=== PATIENT | female | born 1945 | race American Indian/Alaskan Native ===

== ENCOUNTER 2016-11-12 23:17 | Emergency (ER) | payer MEDICARE ==
[2016-11-12] MEDS ORDERED: ASPIRIN PO ONE (23:50)
--- NOTE | 2016-11-12 23:56 | Emergency Department Report ---
ED General Adult HPI - General Chief complaint: Chest Pain Stated complaint: ARM/CHEST PAIN Time Seen by Provider: 11/12/16 23:44 Source: patient, EMS Mode of arrival: Stretcher Limitations: Physical Limitation - History of Present Illness Initial comments: 71-year-old female presents to the emergency department complaining of left- sided chest pain. Patient reports intermittent symptoms beginning yesterday. Patient describes a sharp, tingling pain that begins in the left upper chest/ trapezius area and radiates down her left arm and around her back underneath her left breast. She denies associated symptoms including source of breath, dizziness, diaphoresis, nausea, or vomiting. She states she has had 3 episodes of this pain since onset yesterday. At this time, the patient denies pain. There are no other complaints. -: Gradual, days(s) (1) Location: chest Quality: sharp Consistency: intermittent Improves with: none Worsens with: none Associated Symptoms: denies other symptoms Treatments Prior to Arrival: none - Related Data Home Medications Medication Instructions Recorded Confirmed Last Taken Aspirin [Aspirin TAB] 325 mg PO QDAY 01/18/14 11/12/16 11/12/16 Carvedilol [Coreg] 3.125 mg PO BID 01/18/14 11/12/16 11/12/16 Furosemide [Lasix] 20 mg PO DAILY 01/18/14 11/12/16 11/12/16 Meclizine [Antivert] 25 mg PO TID PRN 01/18/14 11/12/16 11/12/16 Metformin HCl [Fortamet] 1,000 mg PO BID 01/18/14 11/12/16 11/12/16 Simvastatin 20 mg PO QDAY 01/18/14 11/12/16 11/12/16 glipiZIDE [Glipizide ER] 5 mg PO QAM 01/18/14 11/12/16 11/12/16 Previous Rx's Medication Instructions Recorded Last Taken Type HYDROcodone/APAP 5-325 [[place] 1 each PO Q6HR PRN #20 tablet 01/19/14 Unknown Rx 5/325 mg] Cyclobenzaprine [Flexeril] 10 mg PO TID PRN #14 tablet 11/13/16 Unknown Rx Allergies Allergy/AdvReac Type Severity Reaction Status Date / Time No Known Allergies Allergy Verified 01/18/14 19:33 ED Review of Systems ROS: Stated complaint: ARM/CHEST PAIN Other details as noted in HPI Comment: All other systems reviewed and negative Cardiovascular: chest pain ED Past Medical Hx - Past Medical History Previous Medical History?: Yes Hx Hypertension: Yes Hx Heart Attack/AMI: Yes Hx Diabetes: Yes Hx Arthritis: Yes Additional medical history: high cholesterol / eye problems - Surgical History Past Surgical History?: Yes Hx Coronary Stent: Yes Hx Cholecystectomy: Yes Additional Surgical History: carpal tunnel. - Family History Family history: no significant - Social History Smoking Status: Never Smoker Substance Use Type: None - Medications Home Medications: Home Medications Medication Instructions Recorded Confirmed Last Taken Type Aspirin [Aspirin TAB] 325 mg PO QDAY 01/18/14 11/12/16 11/12/16 History Carvedilol [Coreg] 3.125 mg PO BID 01/18/14 11/12/16 11/12/16 History Furosemide [Lasix] 20 mg PO DAILY 01/18/14 11/12/16 11/12/16 History Meclizine [Antivert] 25 mg PO TID PRN 01/18/14 11/12/16 11/12/16 History Metformin HCl [Fortamet] 1,000 mg PO BID 01/18/14 11/12/16 11/12/16 History Simvastatin 20 mg PO QDAY 01/18/14 11/12/16 11/12/16 History glipiZIDE [Glipizide ER] 5 mg PO QAM 01/18/14 11/12/16 11/12/16 History HYDROcodone/APAP 5-325 [[place] 1 each PO Q6HR PRN #20 tablet 01/19/14 11/12/16 Unknown Rx 5/325 mg] Cyclobenzaprine [Flexeril] 10 mg PO TID PRN #14 tablet 11/13/16 Unknown Rx ED Physical Exam - General Limitations: No Limitations General appearance: alert, in no apparent distress - Head Head exam: Present: atraumatic, normocephalic - ENT ENT exam: Present: normal exam, normal orophraynx, mucous membranes moist - Neck Neck exam: Present: normal inspection, full ROM. Absent: tenderness - Respiratory Respiratory exam: Present: normal lung sounds bilaterally. Absent: respiratory distress, chest wall tenderness - Cardiovascular Cardiovascular Exam: Present: regular rate, normal rhythm, normal heart sounds - GI/Abdominal GI/Abdominal exam: Present: soft, normal bowel sounds. Absent: distended, tenderness - Extremities Exam Extremities exam: Present: normal inspection, full ROM. Absent: tenderness - Back Exam Back exam: Present: normal inspection, full ROM. Absent: tenderness - Neurological Exam Neurological exam: Present: alert, oriented X3. Absent: motor sensory deficit - Skin Skin exam: Present: warm, dry, intact ED Course Vital Signs 11/12/16 23:40 Temperature 98.4 F Pulse Rate 89 Respiratory 18 Rate Blood Pressure 163/68 O2 Sat by Pulse 100 Oximetry ED Medical Decision Making - Lab Data Result diagrams: 11/12/16 23:54 11/12/16 23:54 - EKG Data -: EKG Interpreted by Me EKG shows normal: sinus rhythm, axis, intervals, QRS complexes, ST-T waves Rate: normal - EKG Data When compared to previous EKG there are: no significant change Interpretation: unchanged when compared t (05/29/2013), other (occasional PAC) - Medical Decision Making Lab results reviewed and discussed with the patient. Patient has remained asymptomatic in the emergency department. Patient has had a nonischemic ECG and 2 negative troponins. Patient will be discharged home at this time to follow up with her primary care physician. - Differential Diagnosis atypical chest pain, ACS, muscle spasm Critical care attestation.: If time is entered above; I have spent that time in minutes in the direct care of this critically ill patient, excluding procedure time. ED Disposition Clinical Impression: Muscle spasm of left shoulder area Disposition: DISCHARGED TO HOME OR SELFCARE Is pt being admited?: No Condition: Stable Instructions: Muscle Spasm (ED) Prescriptions: Cyclobenzaprine [Flexeril] 10 mg PO TID PRN #14 tablet PRN Reason: Muscle Spasm Referrals: PRIMARY CARE, [Primary Care Provider] - 3-5 Days Time of Disposition: 03:54
[2016-11-13 00:06] LABS: Basophils % (Auto) 0.8 % (0.0-1.8); Eosinophils % (Auto) 3.6 % (0.0-4.3); Hematocrit 33.8 % (30.3-42.9); Hemoglobin 11.2 gm/dl (10.1-14.3); Mean Corpuscular HGB Conc 33 % (30-34); Mean Corpuscular Hemoglobin 31 pg (28-32); Mean Corpuscular Volume 94 fl (79-97); Platelet Count 228 K/mm3 (140-440); Red Blood Count 3.61 M/mm3 (3.65-5.03); Red Cell Distribution Width 13.1 % (13.2-15.2); White Blood Count 8.9 K/mm3 (4.5-11.0)
[2016-11-13 00:25] LABS: BUN/Creatinine Ratio 15.45; Blood Urea Nitrogen 17 mg/dL (7-17); Calcium 8.9 mg/dL (8.4-10.2); Carbon Dioxide 29 mmol/L (22-30); Chloride 99.8 mmol/L (98-107); Glucose 309 mg/dL (65-100); Potassium 3.6 mmol/L (3.6-5.0); Sodium 141 mmol/L (137-145)
[2016-11-13 00:26] LABS: Anion Gap 16 mmol/L
[2016-11-13 04:23] VITALS: BP 129/58
== END 2016-11-13 04:22 | disposition home or self-care (01) ==
LOC: ED 23:17
DX: M62.838 Other muscle spasm (principal); I10 Essential (primary) hypertension; E11.9 Type 2 diabetes mellitus without complications; M19.90 Unspecified osteoarthritis, unspecified site; E78.00 Pure hypercholesterolemia, unspecified; I25.2 Old myocardial infarction; Z90.49 Acquired absence of other specified parts of digestive tract
CPT/HCPCS: 36415; 80048; 84484; 85025; 93005; 93010; 99284

== ENCOUNTER 2017-10-18 02:19 | Inpatient (IN) | payer MEDICARE ==
[2017-10-18 03:42] LABS: Hematocrit 30.2 % (30.3-42.9); Hemoglobin 10.2 gm/dl (10.1-14.3); Mean Corpuscular HGB Conc 34 % (30-34); Mean Corpuscular Hemoglobin 32 pg (28-32); Mean Corpuscular Volume 96 fl (79-97); Platelet Count 237 K/mm3 (140-440); Red Blood Count 3.16 M/mm3 (3.65-5.03); Red Cell Distribution Width 13.2 % (13.2-15.2); White Blood Count 10.4 K/mm3 (4.5-11.0)
[2017-10-18 03:54] LABS: Anion Gap 14 mmol/L; BUN/Creatinine Ratio 15; Blood Urea Nitrogen 16 mg/dL (7-17); Calcium 9.3 mg/dL (8.4-10.2); Carbon Dioxide 28 mmol/L (22-30); Chloride 102.6 mmol/L (98-107); Glucose 122 mg/dL (65-100); Potassium 3.9 mmol/L (3.6-5.0); Sodium 141 mmol/L (137-145)
[2017-10-18 04:15] LABS: Blastocytes % (Manual) 0 %
[2017-10-18 04:20] LABS: Basophils % (Manual) 0 % (0.0-1.8)
[2017-10-18 04:21] LABS: Anisocytosis 1+; Burr Cells Few; Diff Status Complete; Platelet Estimate Consistent w Auto
[2017-10-18] MEDS ORDERED: PEPCID IV ONE (05:01)
[2017-10-18] MEDS ORDERED: LIDOCAINE VISCOUS 2% PO ONE (05:21)
[2017-10-18] MEDS ORDERED: ALUM-MAG HYDROX-SIMETH 200-200-20MG/5ML PO ONE (05:21)
[2017-10-18] MEDS ORDERED: ULTRAM PO ONE (05:21)
--- NOTE | 2017-10-18 05:22 | Emergency Department Report ---
ED Chest Pain HPI - General Chief Complaint: Chest Pain Stated Complaint: CHEST PAIN Time Seen by Provider: 10/18/17 03:32 Source: patient, EMS Mode of arrival: Stretcher Limitations: No Limitations - History of Present Illness Initial Comments: 72-year-old female with a past medical history diabetes, CAD with stent, hypertension, elevated cholesterol, and GERD presents to the hospital with complaints of burning substernal chest pain radiating to her back. Symptoms started yesterday evening are intermittent. No aggravating or alleviating factors reported. Patient denies nausea, vomiting, diarrhea, diaphoresis, or shortness of breath. She has chronic leg edema that is unchanged from her baseline. Patient states she has similar pain when she had an NV requiring a stent in 1998. 1998 was a last cardiac catheterization but she reports having a stress test performed this year by [facility]. Patient states she also has a history of reflux and this is different because it is more persistent. She takes PPI intermittently but not today. Severity scale (0 -10): 7 - Related Data Home Medications Medication Instructions Recorded Confirmed Last Taken Aspirin [Aspirin TAB] 325 mg PO QDAY 01/18/14 11/12/16 11/12/16 Carvedilol [Coreg] 3.125 mg PO BID 01/18/14 11/12/16 11/12/16 Furosemide [Lasix] 20 mg PO DAILY 01/18/14 11/12/16 11/12/16 Meclizine [Antivert] 25 mg PO TID PRN 01/18/14 11/12/16 11/12/16 Metformin HCl [Fortamet] 1,000 mg PO BID 01/18/14 11/12/16 11/12/16 Simvastatin 20 mg PO QDAY 01/18/14 11/12/16 11/12/16 glipiZIDE [Glipizide ER] 5 mg PO QAM 01/18/14 11/12/16 11/12/16 Previous Rx's Medication Instructions Recorded Last Taken Type HYDROcodone/APAP 5-325 [[place] 1 each PO Q6HR PRN #20 tablet 01/19/14 Unknown Rx 5/325 mg] Cyclobenzaprine [Flexeril] 10 mg PO TID PRN #14 tablet 11/13/16 Unknown Rx Allergies Allergy/AdvReac Type Severity Reaction Status Date / Time No Known Allergies Allergy Verified 01/18/14 19:33 Heart Score - HEART Score History: Moderately suspicious EKG: Non-specific Age: > 65 Risk factors: > 3 risk factors or hx of atherosclerotic disease Troponin: < normal limit HEART Score: 6 ED Review of Systems ROS: Stated complaint: CHEST PAIN Other details as noted in HPI Comment: All other systems reviewed and negative Other: Constitutional: No fevers chills Eyes: No eye pain visual changes ENT: No ear pain or throat pain Neck: Denies pain Respiratory: Denies cough wheezing Cardiovascular: Denies palpitations, syncope GI: Denies abdominal pain, nausea, vomiting, diarrhea : Denies dysuria Musculoskeletal: Denies back pain Skin: Denies rash, lesions, erythema Neurologic: Denies headache, numbness, weakness Psychiatric: Denies suicidal ideation, hallucinations ED Past Medical Hx - Past Medical History Hx Hypertension: Yes Hx Heart Attack/AMI: Yes Hx Diabetes: Yes Hx Arthritis: Yes Additional medical history: high cholesterol / eye problems - Surgical History Hx Coronary Stent: Yes Hx Cholecystectomy: Yes Additional Surgical History: carpal tunnel. - Social History Smoking Status: Never Smoker Substance Use Type: None - Medications Home Medications: Home Medications Medication Instructions Recorded Confirmed Last Taken Type Aspirin [Aspirin TAB] 325 mg PO QDAY 01/18/14 11/12/16 11/12/16 History Carvedilol [Coreg] 3.125 mg PO BID 01/18/14 11/12/16 11/12/16 History Furosemide [Lasix] 20 mg PO DAILY 01/18/14 11/12/16 11/12/16 History Meclizine [Antivert] 25 mg PO TID PRN 01/18/14 11/12/16 11/12/16 History Metformin HCl [Fortamet] 1,000 mg PO BID 01/18/14 11/12/16 11/12/16 History Simvastatin 20 mg PO QDAY 01/18/14 11/12/16 11/12/16 History glipiZIDE [Glipizide ER] 5 mg PO QAM 01/18/14 11/12/16 11/12/16 History HYDROcodone/APAP 5-325 [[place] 1 each PO Q6HR PRN #20 tablet 01/19/14 11/12/16 Unknown Rx 5/325 mg] Cyclobenzaprine [Flexeril] 10 mg PO TID PRN #14 tablet 11/13/16 Unknown Rx ED Physical Exam - General Limitations: No Limitations - Other Other exam information: General: No limitations, patient is alert in no acute distress Head exam: Atraumatic, normocephalic Eyes exam: Normal appearance ENT: Moist mucous membrane, normal oropharynx Neck exam: Normal inspection, full range of motion, no meningismus nontender Respiratory exam: Clear to auscultation bilateral, no wheezes, rales, crackles Cardiovascular: Normal rate and rhythm, left chest wall tenderness to palpation Abdomen: Soft, nondistended, and nontender, with normal bowel sounds, no rebound, or guarding Extremity: Full range of motion normal inspection no deformity, 1+ pitting edema to lower extremities, equal in size, no calf tenderness Back: Normal Inspection, full range of motion, no tenderness Neurologic: Alert, oriented x3, cranial nerves intact, no motor or sensory deficit Psychiatric: normal affect, normal mood Skin: Warm, dry, intact ED Course Vital Signs 10/18/17 10/18/17 10/18/17 02:45 02:47 02:56 Temperature 98.1 F Pulse Rate 74 71 Respiratory 11 L 17 17 Rate Blood Pressure 129/52 O2 Sat by Pulse 98 100 100 Oximetry 10/18/17 10/18/17 10/18/17 03:00 03:15 03:30 Temperature Pulse Rate 74 76 Respiratory 14 12 12 Rate Blood Pressure 143/53 143/53 143/53 O2 Sat by Pulse 99 100 98 Oximetry - Reevaluation(s) Reevaluation #1: 10/18/17 05:33 Patient declined medication for pain however, tramadol, Maalox, viscous lidocaine ordered. Pain appears to be reproducible on palpation. SB score - Sb Score Age > 65: (1) Yes Aspirin use within the Past 7 Days: (1) Yes 3 or more CAD Risk Factors: (1) Yes 2 or more Angina events in past 24 hrs: (1) Yes Known CAD with more than 50% Stenosis: (1) Yes Elevated Cardiac Markers: (0) No ST Deviation Greater than 0.5mm: (0) No SB Score: 5 ED Medical Decision Making - Lab Data Result diagrams: 10/18/17 03:16 10/18/17 03:16 Lab Results 10/18/17 10/18/17 Range/Units 03:16 03:16 WBC 10.4 (4.5-11.0) K/mm3 RBC 3.16 L (3.65-5.03) M/mm3 Hgb 10.2 (10.1-14.3) gm/dl Hct 30.2 L (30.3-42.9) % MCV 96 (79-97) fl MCH 32 (28-32) pg MCHC 34 (30-34) % RDW 13.2 (13.2-15.2) % Plt Count 237 (140-440) K/mm3 Lymph # Papier Mache' Molder Add Manual Diff Complete Total Counted 100 Seg Neuts % (Manual) 42.0 (40.0-70.0) % Band Neutrophils % 0 % Lymphocytes % (Manual) 49.0 H (13.4-35.0) % Reactive Lymphs % (Man) 0 % Monocytes % (Manual) 7.0 (0.0-7.3) % Eosinophils % (Manual) 2.0 (0.0-4.3) % Basophils % (Manual) 0 (0.0-1.8) % Metamyelocytes % 0 % Myelocytes % 0 % Promyelocytes % 0 % Blast Cells % 0 % Nucleated RBC % Not Reportable Seg Neutrophils # Man 4.4 (1.8-7.7) K/mm3 Band Neutrophils # 0.0 K/mm3 Lymphocytes # (Manual) 5.1 (1.2-5.4) K/mm3 Abs React Lymphs (Man) 0.0 K/mm3 Monocytes # (Manual) 0.7 (0.0-0.8) K/mm3 Eosinophils # (Manual) 0.2 (0.0-0.4) K/mm3 Basophils # (Manual) 0.0 (0.0-0.1) K/mm3 Metamyelocytes # 0.0 K/mm3 Myelocytes # 0.0 K/mm3 Promyelocytes # 0.0 K/mm3 Blast Cells # 0.0 K/mm3 WBC Morphology Not Reportable Hypersegmented Neuts Not Reportable Hyposegmented Neuts Not Reportable Hypogranular Neuts Not Reportable Smudge Cells Not Reportable Toxic Granulation Not Reportable Toxic Vacuolation Not Reportable Dohle Bodies Not Reportable Pelger-Huet Anomaly Not Reportable Meghana Rods Not Reportable Platelet Estimate Consistent w auto Clumped Platelets Not Reportable Plt Clumps, EDTA Not Reportable Large Platelets Not Reportable Giant Platelets Not Reportable Platelet Satelliting Not Reportable Plt Morphology Comment Not Reportable RBC Morphology Not Reportable Dimorphic RBCs Not Reportable Polychromasia Not Reportable Hypochromasia Not Reportable Poikilocytosis Not Reportable Anisocytosis 1+ Microcytosis Not Reportable Macrocytosis Not Reportable Spherocytes Not Reportable Pappenheimer Bodies Not Reportable Sickle Cells Not Reportable Target Cells Not Reportable Tear Drop Cells Not Reportable Ovalocytes Not Reportable Helmet Cells Not Reportable [place] Bodies Not Reportable [place] Rings Not Reportable [place] Cells Few Bite Cells Not Reportable Crenated Cell Not Reportable Elliptocytes Not Reportable Acanthocytes (Spur) Not Reportable Rouleaux Not Reportable Hemoglobin C Crystals Not Reportable Schistocytes Not Reportable Malaria parasites Not Reportable Beinvenido Bodies Not Reportable Hem Pathologist Commnt No Sodium 141 (137-145) mmol/L Potassium 3.9 (3.6-5.0) mmol/L Chloride 102.6 (98-107) mmol/L Carbon Dioxide 28 (22-30) mmol/L Anion Gap 14 mmol/L BUN 16 (7-17) mg/dL Creatinine 1.1 (0.7-1.2) mg/dL Estimated GFR 59 ml/min BUN/Creatinine Ratio 15 % Glucose 122 H (65-100) mg/dL Calcium 9.3 (8.4-10.2) mg/dL Troponin T < 0.010 (0.00-0.029) ng/mL - EKG Data -: EKG Interpreted by Me EKG shows normal: sinus rhythm (74), axis (-11), QRS complexes (89), ST-T waves (no stemi/t inv) Rate: normal - EKG Data When compared to previous EKG there are: no significant change (oct, 2016) - Medical Decision Making Plan to admit patient to the hospital for observation and cardiac workup. I suspect muscular skeletal pain and GERD. No signs of ST elevation, EKG changes , or troponin elevation in the ED - Differential Diagnosis mi, MSK pain, costochondritis, GERD Critical Care Time: No Critical care attestation.: If time is entered above; I have spent that time in minutes in the direct care of this critically ill patient, excluding procedure time. ED Disposition Clinical Impression: Chest pain, Hx of heart artery stent, Hx of gastroesophageal reflux (GERD), HTN (hypertension), Diabetes Disposition: [id number] OP ADMIT IP TO THIS HOSP Is pt being admited?: Yes Condition: Stable Time of Disposition: 05:22 (Dr Ramirez/hosp)
--- NOTE | 2017-10-18 05:54 | XRay Report ---
FINAL REPORT EXAM: XR CHEST 1V AP HISTORY: cp TECHNIQUE: A portable upright view of the chest was submitted. There are no previous studies available for comparison. FINDINGS: The heart size and mediastinum appear normal. There are no localized infiltrates or effusions. The lungs are not congested. There are EKG leads overlying the chest wall. The bones and soft tissues do not show any acute changes. IMPRESSION: No active chest disease.
[2017-10-18] MEDS ORDERED: PERCOCET 5/325 PO PRN (09:41)
[2017-10-18] MEDS ORDERED: PROVENTIL IH PRN (09:41)
[2017-10-18] MEDS ORDERED: MILK OF MAGNESIA PO PRN (09:41)
[2017-10-18] MEDS ORDERED: TYLENOL PO PRN (09:41)
[2017-10-18] MEDS ORDERED: ZOFRAN IV PRN (09:41)
[2017-10-18] MEDS ORDERED: ANTIVERT PO PRN (09:59)
[2017-10-18] MEDS ORDERED: DULCOLAX PR PRN (10:00)
[2017-10-18] MEDS ORDERED: NON-FORMULARY (Metformin Hcl [Fortamet Er] 1,000 MG) PO SCH (10:00)
[2017-10-18] MEDS ORDERED: NON-FORMULARY (Simvastatin [Simvastatin] 20 MG) PO SCH (10:00)
--- NOTE | 2017-10-18 10:08 | History and Physical Report ---
<JAVAN NIELSEN - Last Filed: 10/18/17 10:04> History of Present Illness Date of examination: 10/18/17 Date of admission: 10/18/17 05:22 Chief complaint: Chest Pain History of present illness: 72-year-old female with a past medical history diabetes, CAD with stent, hypertension, elevated cholesterol, and GERD presents to the hospital with complaints of burning substernal chest pain radiating to her back. Symptoms started yesterday evening are intermittent. No aggravating or alleviating factors reported. Patient denies nausea, vomiting, diarrhea, diaphoresis, or shortness of breath. She has chronic leg edema that is unchanged from her baseline. Patient states she has similar pain when she had an FL requiring a stent in 1998. 1998 was a last cardiac catheterization but she reports having a stress test performed this year by [facility]. Patient states she also has a history of reflux and this is different because it is more persistent. Past History Past Medical History: acute FL, arthritis, diabetes, GERD, hypertension, hyperlipidemia Past Surgical History: cholecystectomy, , Other (carpal tunnel, coronary stent) Social history: other (never smoked) Medications and Allergies Allergies Allergy/AdvReac Type Severity Reaction Status Date / Time No Known Allergies Allergy Verified 01/18/14 19:33 Home Medications Medication Instructions Recorded Confirmed Last Taken Type Carvedilol [Coreg] 3.125 mg PO BID 01/18/14 10/18/17 11/12/16 History Furosemide [Lasix] 20 mg PO DAILY 01/18/14 10/18/17 11/12/16 History Metformin HCl [Fortamet] 1,000 mg PO BID 01/18/14 10/18/17 11/12/16 History Simvastatin 20 mg PO QHS 01/18/14 10/18/17 11/12/16 History Aspirin EC [Aspirin Enteric Coated 81 mg PO DAILY 10/18/17 10/18/17 Unknown History TAB] Cetirizine HCl [Allergy Relief] 10 mg PO DAILY 10/18/17 10/18/17 Unknown History Losartan [Cozaar] 50 mg PO DAILY 10/18/17 10/18/17 Unknown History Ranitidine HCl [Zantac 150 MG TAB] 150 mg PO BID 10/18/17 10/18/17 Unknown History Triamcinolone 0.1% [Kenalog 0.1% 15 gm TP BID 10/18/17 10/18/17 Unknown History CREAM] glipiZIDE [Glipizide] 10 mg PO DAILY 10/18/17 10/18/17 Unknown History Active Meds: Active Medications Acetaminophen (Tylenol) 650 mg PO Q4H PRN PRN Reason: Pain MILD(1-3)/Fever >100.5/JUDD Albuterol (Proventil) 2.5 mg IH Q4HRT PRN PRN Reason: Shortness Of Breath Bisacodyl (Dulcolax) 10 mg [place] QDAY PRN PRN Reason: Constipation unrelieved by MOM Enoxaparin Sodium (Lovenox) 40 mg SUB-Q QDAY WHIT Magnesium Hydroxide (Milk Of Magnesia) 30 ml PO Q4H PRN PRN Reason: Constipation Ondansetron HCl (Zofran) 4 mg IV Q8H PRN PRN Reason: N/V unrelieved by Reglan Oxycodone/Acetaminophen (Percocet 5/325) 1 tab PO Q6H PRN PRN Reason: Pain, Moderate (4-6) Zolpidem Tartrate (Ambien) 5 mg PO QHS PRN PRN Reason: Insomnia Review of Systems Constitutional: chronic pain, no sweats, no weakness Ears, nose, mouth and throat: no ear discharge, no nasal congestion Breasts: normal Cardiovascular: chest pain, high blood pressure, leg edema, no orthopnea, no palpitations, no lightheadedness, no shortness of breath Respiratory: no cough, no shortness of breath Gastrointestinal: no abdominal pain, no nausea, no vomiting Genitourinary Female: no pelvic pain, no dysuria Menstruation: postmenopausal Rectal: no pain, no incontinence Musculoskeletal: arthritis, no neck stiffness, no neck pain Integumentary: no rash, no pruritis Neurological: no paralysis, no parathesias Psychiatric: no anxiety, no depression Endocrine: no cold intolerance, no heat intolerance Hematologic/Lymphatic: no easy bruising, no easy bleeding Allergic/Immunologic: no urticaria, no allergic rhinitis Exam - Constitutional Vitals: Temp Pulse Resp BP Pulse Ox 98.1 F 69 12 150/72 100 10/18/17 02:47 10/18/17 09:30 10/18/17 09:30 10/18/17 09:30 10/18/17 09:30 General appearance: Present: no acute distress, well-nourished - EENT Eyes: Present: PERRL ENT: hearing intact, clear oral mucosa - Neck Neck: Present: supple, normal ROM - Respiratory Respiratory effort: normal Respiratory: bilateral: CTA - Cardiovascular Heart Sounds: Present: S1 & S2. Absent: rub, click - Extremities Extremities: pulses symmetrical Extremity abnormal: edema (bilateral LE 2+ pitting) Peripheral Pulses: within normal limits - Abdominal General gastrointestinal: Present: soft, non-tender, non-distended, normal bowel sounds Female genitourinary: Present: deferred - Rectal Rectal Exam: deferred - Integumentary Integumentary: Present: clear, warm, dry - Musculoskeletal Musculoskeletal: gait normal, strength equal bilaterally - Psychiatric Psychiatric: appropriate mood/affect, intact judgment & insight - Neurologic Neurologic: CNII-XII intact, moves all extremities - Allied Health Allied health notes reviewed: nursing Results - Labs CBC & Chem 7: 10/18/17 03:16 10/18/17 03:16 Labs: Laboratory Last Values WBC 10.4 K/mm3 (4.5-11.0) 10/18/17 03:16 RBC 3.16 M/mm3 (3.65-5.03) L 10/18/17 03:16 Hgb 10.2 gm/dl (10.1-14.3) 10/18/17 03:16 Hct 30.2 % (30.3-42.9) L 10/18/17 03:16 MCV 96 fl (79-97) 10/18/17 03:16 MCH 32 pg (28-32) 10/18/17 03:16 MCHC 34 % (30-34) 10/18/17 03:16 RDW 13.2 % (13.2-15.2) 10/18/17 03:16 Plt Count 237 K/mm3 (140-440) 10/18/17 03:16 Lymph # Shop Router 10/18/17 03:16 Add Manual Diff Complete 10/18/17 03:16 Total Counted 100 10/18/17 03:16 Seg Neuts % (Manual) 42.0 % (40.0-70.0) 10/18/17 03:16 Band Neutrophils % 0 % 10/18/17 03:16 Lymphocytes % (Manual) 49.0 % (13.4-35.0) H 10/18/17 03:16 Reactive Lymphs % (Man) 0 % 10/18/17 03:16 Monocytes % (Manual) 7.0 % (0.0-7.3) 10/18/17 03:16 Eosinophils % (Manual) 2.0 % (0.0-4.3) 10/18/17 03:16 Basophils % (Manual) 0 % (0.0-1.8) 10/18/17 03:16 Metamyelocytes % 0 % 10/18/17 03:16 Myelocytes % 0 % 10/18/17 03:16 Promyelocytes % 0 % 10/18/17 03:16 Blast Cells % 0 % 10/18/17 03:16 Nucleated RBC % Not Reportable 10/18/17 03:16 Seg Neutrophils # Man 4.4 K/mm3 (1.8-7.7) 10/18/17 03:16 Band Neutrophils # 0.0 K/mm3 10/18/17 03:16 Lymphocytes # (Manual) 5.1 K/mm3 (1.2-5.4) 10/18/17 03:16 Abs React Lymphs (Man) 0.0 K/mm3 10/18/17 03:16 Monocytes # (Manual) 0.7 K/mm3 (0.0-0.8) 10/18/17 03:16 Eosinophils # (Manual) 0.2 K/mm3 (0.0-0.4) 10/18/17 03:16 Basophils # (Manual) 0.0 K/mm3 (0.0-0.1) 10/18/17 03:16 Metamyelocytes # 0.0 K/mm3 10/18/17 03:16 Myelocytes # 0.0 K/mm3 10/18/17 03:16 Promyelocytes # 0.0 K/mm3 10/18/17 03:16 Blast Cells # 0.0 K/mm3 10/18/17 03:16 WBC Morphology Not Reportable 10/18/17 03:16 Hypersegmented Neuts Not Reportable 10/18/17 03:16 Hyposegmented Neuts Not Reportable 10/18/17 03:16 Hypogranular Neuts Not Reportable 10/18/17 03:16 Smudge Cells Not Reportable 10/18/17 03:16 Toxic Granulation Not Reportable 10/18/17 03:16 Toxic Vacuolation Not Reportable 10/18/17 03:16 Dohle Bodies Not Reportable 10/18/17 03:16 Pelger-Huet Anomaly Not Reportable 10/18/17 03:16 Meghana Rods Not Reportable 10/18/17 03:16 Platelet Estimate Consistent w auto 10/18/17 03:16 Clumped Platelets Not Reportable 10/18/17 03:16 Plt Clumps, EDTA Not Reportable 10/18/17 03:16 Large Platelets Not Reportable 10/18/17 03:16 Giant Platelets Not Reportable 10/18/17 03:16 Platelet Satelliting Not Reportable 10/18/17 03:16 Plt Morphology Comment Not Reportable 10/18/17 03:16 RBC Morphology Not Reportable 10/18/17 03:16 Dimorphic RBCs Not Reportable 10/18/17 03:16 Polychromasia Not Reportable 10/18/17 03:16 Hypochromasia Not Reportable 10/18/17 03:16 Poikilocytosis Not Reportable 10/18/17 03:16 Anisocytosis 1+ 10/18/17 03:16 Microcytosis Not Reportable 10/18/17 03:16 Macrocytosis Not Reportable 10/18/17 03:16 Spherocytes Not Reportable 10/18/17 03:16 Pappenheimer Bodies Not Reportable 10/18/17 03:16 Sickle Cells Not Reportable 10/18/17 03:16 Target Cells Not Reportable 10/18/17 03:16 Tear Drop Cells Not Reportable 10/18/17 03:16 Ovalocytes Not Reportable 10/18/17 03:16 Helmet Cells Not Reportable 10/18/17 03:16 Caldwell-Cressey Bodies Not Reportable 10/18/17 03:16 [place] Rings Not Reportable 10/18/17 03:16 [place] Cells Few 10/18/17 03:16 Bite Cells Not Reportable 10/18/17 03:16 Crenated Cell Not Reportable 10/18/17 03:16 Elliptocytes Not Reportable 10/18/17 03:16 Acanthocytes (Spur) Not Reportable 10/18/17 03:16 Rouleaux Not Reportable 10/18/17 03:16 Hemoglobin C Crystals Not Reportable 10/18/17 03:16 Schistocytes Not Reportable 10/18/17 03:16 Malaria parasites Not Reportable 10/18/17 03:16 Bienvenido Bodies Not Reportable 10/18/17 03:16 Hem Pathologist Commnt No 10/18/17 03:16 Sodium 141 mmol/L (137-145) 10/18/17 03:16 Potassium 3.9 mmol/L (3.6-5.0) 10/18/17 03:16 Chloride 102.6 mmol/L (98-107) 10/18/17 03:16 Carbon Dioxide 28 mmol/L (22-30) 10/18/17 03:16 Anion Gap 14 mmol/L 10/18/17 03:16 BUN 16 mg/dL (7-17) 10/18/17 03:16 Creatinine 1.1 mg/dL (0.7-1.2) 10/18/17 03:16 Estimated GFR 59 ml/min 10/18/17 03:16 BUN/Creatinine Ratio 15 % 10/18/17 03:16 Glucose 122 mg/dL (65-100) H 10/18/17 03:16 Calcium 9.3 mg/dL (8.4-10.2) 10/18/17 03:16 Troponin T < 0.010 ng/mL (0.00-0.029) 10/18/17 08:39 - Imaging and Cardiology Chest x-ray: report reviewed Assessment and Plan Advance Directives: Yes VTE prophylaxis?: Chemical Plan of care discussed with patient/family: Yes - Patient Problems (1) Chest pain Current Visit: Yes Status: Acute Plan to address problem: Nicki WNL, unknown date of last stress test Consult to cardiology, ? repeat stress, ? cardiac cath supportive care (2) Hyperlipidemia Current Visit: Yes Status: Chronic Plan to address problem: Continue Statin therapy (3) Diabetes mellitus Current Visit: Yes Status: Chronic Plan to address problem: Continue current at home medication ADA diet, Accu-Cheks before meals and at bedtime (4) HTN (hypertension) Current Visit: Yes Status: Chronic Plan to address problem: Continue Coreg (5) Hx of gastroesophageal reflux (GERD) Current Visit: Yes Status: Chronic Plan to address problem: Pepcid when necessary (6) DVT prophylaxis Current Visit: Yes Status: Acute Plan to address problem: On Lovenox <AILYNLOU AGUILERAJocelynnSOWMYA - Last Filed: 10/18/17 21:46> History of Present Illness Date of admission: 10/18/17 05:22 Medications and Allergies Active Meds: Active Medications Acetaminophen (Tylenol) 650 mg PO Q4H PRN PRN Reason: Pain MILD(1-3)/Fever >100.5/JUDD Albuterol (Proventil) 2.5 mg IH Q4HRT PRN PRN Reason: Shortness Of Breath Aspirin (Aspirin) 325 mg PO QDAY [facility] Last Admin: 10/18/17 12:45 Dose: 325 mg Bisacodyl (Dulcolax) 10 mg [place] QDAY PRN PRN Reason: Constipation unrelieved by MOM Carvedilol (Coreg) 3.125 mg PO BID [facility] Last Admin: 10/18/17 21:03 Dose: 3.125 mg Dextrose (D50w (25gm) Syringe) 50 ml IV PRN PRN PRN Reason: Hypoglycemia Enoxaparin Sodium (Lovenox) 40 mg SUB-Q QDAY [facility] Last Admin: 10/18/17 12:35 Dose: 40 mg Furosemide (Lasix) 20 mg PO DAILY [facility] Last Admin: 10/18/17 12:46 Dose: 20 mg Glipizide (Glucotrol Xl) 5 mg PO QDDIAB [facility] Last Admin: 10/18/17 12:50 Dose: 5 mg Insulin Aspart (Novolog) 0 units SUB-Q ACHS [facility] PRN Reason: Protocol Last Admin: 10/18/17 16:45 Dose: Not Given Magnesium Hydroxide (Milk Of Magnesia) 30 ml PO Q4H PRN PRN Reason: Constipation Meclizine HCl (Antivert) 25 mg PO TID PRN PRN Reason: Vertigo Metformin HCl (Glucophage Xr) 1,000 mg PO BIDDIAB [facility] Last Admin: 10/18/17 19:43 Dose: 1,000 mg Ondansetron HCl (Zofran) 4 mg IV Q8H PRN PRN Reason: N/V unrelieved by Reglan Oxycodone/Acetaminophen (Percocet 5/325) 1 tab PO Q6H PRN PRN Reason: Pain, Moderate (4-6) Pravastatin Sodium (Pravachol) 40 mg PO QHS [facility] Last Admin: 10/18/17 21:03 Dose: 40 mg Zolpidem Tartrate (Ambien) 5 mg PO QHS PRN PRN Reason: Insomnia Exam - Constitutional Vitals: Temp Pulse Resp BP Pulse Ox 97.3 F L 69 18 178/83 99 10/18/17 20:16 10/18/17 20:16 10/18/17 20:16 10/18/17 20:16 10/18/17 20:16 Results - Labs CBC & Chem 7: 10/18/17 03:16 10/18/17 03:16 Labs: Laboratory Last Values WBC 10.4 K/mm3 (4.5-11.0) 10/18/17 03:16 RBC 3.16 M/mm3 (3.65-5.03) L 10/18/17 03:16 Hgb 10.2 gm/dl (10.1-14.3) 10/18/17 03:16 Hct 30.2 % (30.3-42.9) L 10/18/17 03:16 MCV 96 fl (79-97) 10/18/17 03:16 MCH 32 pg (28-32) 10/18/17 03:16 MCHC 34 % (30-34) 10/18/17 03:16 RDW 13.2 % (13.2-15.2) 10/18/17 03:16 Plt Count 237 K/mm3 (140-440) 10/18/17 03:16 Lymph # Shop Router 10/18/17 03:16 Add Manual Diff Complete 10/18/17 03:16 Total Counted 100 10/18/17 03:16 Seg Neuts % (Manual) 42.0 % (40.0-70.0) 10/18/17 03:16 Band Neutrophils % 0 % 10/18/17 03:16 Lymphocytes % (Manual) 49.0 % (13.4-35.0) H 10/18/17 03:16 Reactive Lymphs % (Man) 0 % 10/18/17 03:16 Monocytes % (Manual) 7.0 % (0.0-7.3) 10/18/17 03:16 Eosinophils % (Manual) 2.0 % (0.0-4.3) 10/18/17 03:16 Basophils % (Manual) 0 % (0.0-1.8) 10/18/17 03:16 Metamyelocytes % 0 % 10/18/17 03:16 Myelocytes % 0 % 10/18/17 03:16 Promyelocytes % 0 % 10/18/17 03:16 Blast Cells % 0 % 10/18/17 03:16 Nucleated RBC % Not Reportable 10/18/17 03:16 Seg Neutrophils # Man 4.4 K/mm3 (1.8-7.7) 10/18/17 03:16 Band Neutrophils # 0.0 K/mm3 10/18/17 03:16 Lymphocytes # (Manual) 5.1 K/mm3 (1.2-5.4) 10/18/17 03:16 Abs React Lymphs (Man) 0.0 K/mm3 10/18/17 03:16 Monocytes # (Manual) 0.7 K/mm3 (0.0-0.8) 10/18/17 03:16 Eosinophils # (Manual) 0.2 K/mm3 (0.0-0.4) 10/18/17 03:16 Basophils # (Manual) 0.0 K/mm3 (0.0-0.1) 10/18/17 03:16 Metamyelocytes # 0.0 K/mm3 10/18/17 03:16 Myelocytes # 0.0 K/mm3 10/18/17 03:16 Promyelocytes # 0.0 K/mm3 10/18/17 03:16 Blast Cells # 0.0 K/mm3 10/18/17 03:16 WBC Morphology Not Reportable 10/18/17 03:16 Hypersegmented Neuts Not Reportable 10/18/17 03:16 Hyposegmented Neuts Not Reportable 10/18/17 03:16 Hypogranular Neuts Not Reportable 10/18/17 03:16 Smudge Cells Not Reportable 10/18/17 03:16 Toxic Granulation Not Reportable 10/18/17 03:16 Toxic Vacuolation Not Reportable 10/18/17 03:16 Dohle Bodies Not Reportable 10/18/17 03:16 Pelger-Huet Anomaly Not Reportable 10/18/17 03:16 Meghana Rods Not Reportable 10/18/17 03:16 Platelet Estimate Consistent w auto 10/18/17 03:16 Clumped Platelets Not Reportable 10/18/17 03:16 Plt Clumps, EDTA Not Reportable 10/18/17 03:16 Large Platelets Not Reportable 10/18/17 03:16 Giant Platelets Not Reportable 10/18/17 03:16 Platelet Satelliting Not Reportable 10/18/17 03:16 Plt Morphology Comment Not Reportable 10/18/17 03:16 RBC Morphology Not Reportable 10/18/17 03:16 Dimorphic RBCs Not Reportable 10/18/17 03:16 Polychromasia Not Reportable 10/18/17 03:16 Hypochromasia Not Reportable 10/18/17 03:16 Poikilocytosis Not Reportable 10/18/17 03:16 Anisocytosis 1+ 10/18/17 03:16 Microcytosis Not Reportable 10/18/17 03:16 Macrocytosis Not Reportable 10/18/17 03:16 Spherocytes Not Reportable 10/18/17 03:16 Pappenheimer Bodies Not Reportable 10/18/17 03:16 Sickle Cells Not Reportable 10/18/17 03:16 Target Cells Not Reportable 10/18/17 03:16 Tear Drop Cells Not Reportable 10/18/17 03:16 Ovalocytes Not Reportable 10/18/17 03:16 Helmet Cells Not Reportable 10/18/17 03:16 Caldwell-Cressey Bodies Not Reportable 10/18/17 03:16 [place] Rings Not Reportable 10/18/17 03:16 [place] Cells Few 10/18/17 03:16 Bite Cells Not Reportable 10/18/17 03:16 Crenated Cell Not Reportable 10/18/17 03:16 Elliptocytes Not Reportable 10/18/17 03:16 Acanthocytes (Spur) Not Reportable 10/18/17 03:16 Rouleaux Not Reportable 10/18/17 03:16 Hemoglobin C Crystals Not Reportable 10/18/17 03:16 Schistocytes Not Reportable 10/18/17 03:16 Malaria parasites Not Reportable 10/18/17 03:16 Bienvenido Bodies Not Reportable 10/18/17 03:16 Hem Pathologist Commnt No 10/18/17 03:16 Sodium 141 mmol/L (137-145) 10/18/17 03:16 Potassium 3.9 mmol/L (3.6-5.0) 10/18/17 03:16 Chloride 102.6 mmol/L (98-107) 10/18/17 03:16 Carbon Dioxide 28 mmol/L (22-30) 10/18/17 03:16 Anion Gap 14 mmol/L 10/18/17 03:16 BUN 16 mg/dL (7-17) 10/18/17 03:16 Creatinine 1.1 mg/dL (0.7-1.2) 10/18/17 03:16 Estimated GFR 59 ml/min 10/18/17 03:16 BUN/Creatinine Ratio 15 % 10/18/17 03:16 Glucose 122 mg/dL (65-100) H 10/18/17 03:16 POC Glucose 206 (70-105) H 10/18/17 21:12 Calcium 9.3 mg/dL (8.4-10.2) 10/18/17 03:16 Troponin T < 0.010 ng/mL (0.00-0.029) 10/18/17 08:39 Assessment and Plan Assessment and plan: I saw and evaluated the patient. I agree with the findings and the plan of care as documented in the Nurse Practitioner's note.
[2017-10-18] MEDS ORDERED: D50W (25GM) Syringe IV PRN (10:21)
[2017-10-18] MEDS: LOVENOX SUB-Q SCH (12:35)
[2017-10-18] MEDS: ASPIRIN PO SCH (12:45)
[2017-10-18] MEDS: NOVOLOG SUB-Q SCH ×3 (12:46→21:53)
[2017-10-18] MEDS: COREG PO SCH ×2 (12:46→21:03)
[2017-10-18] MEDS: LASIX PO SCH (12:46)
[2017-10-18] MEDS: GLUCOTROL XL PO SCH (12:50)
--- NOTE | 2017-10-18 16:20 | Consultation ---
History of Present Illness Consult date: 10/18/17 Consult reason: chest pain History of present illness: Patient is a 72yr old woman with a remote history of coronary artery disease. Her latest cardiac workup was a stress thallium test within the year that demonstrates a small sized, reversible basal inferolateral wall defect of mild intensity. No significant change from prior study done in 2012. Normal left ventricular systolic function, EF 60% on echocardiogram. Co-morbidities includes chronic lower extremity edema, Diabetes, GERD, Hyperlipidemia and Hypertension. Patient presents to this hospital with atypical chest pain. Patient describes chest pain as a burning sensation that traveled to her back shortly after eating on yesterday. Chest pain is also reproducible with palpation. She denies diaphoresis, shortness of breath and palpitations. Patient denies vomiting. An ECG is a sinus rhythm with premature atrial complexes. Serial troponins are negative. Cardiology consultation was requested for evaluation of chest pain. Past History Past Medical History: acute MD, arthritis, diabetes, GERD, hypertension, hyperlipidemia Past Surgical History: cholecystectomy, , Other (carpal tunnel, coronary stent) Social history: other (never smoked) Medications and Allergies Allergies Allergy/AdvReac Type Severity Reaction Status Date / Time No Known Allergies Allergy Verified 01/18/14 19:33 Home Medications Medication Instructions Recorded Confirmed Last Taken Type Aspirin [Aspirin TAB] 325 mg PO QDAY 01/18/14 11/12/16 11/12/16 History Carvedilol [Coreg] 3.125 mg PO BID 01/18/14 11/12/16 11/12/16 History Furosemide [Lasix] 20 mg PO DAILY 01/18/14 11/12/16 11/12/16 History Meclizine [Antivert] 25 mg PO TID PRN 01/18/14 11/12/16 11/12/16 History Metformin HCl [Fortamet] 1,000 mg PO BID 01/18/14 11/12/16 11/12/16 History Simvastatin 20 mg PO QDAY 01/18/14 11/12/16 11/12/16 History glipiZIDE [Glipizide ER] 5 mg PO QAM 01/18/14 11/12/16 11/12/16 History HYDROcodone/APAP 5-325 [[place] 1 each PO Q6HR PRN #20 tablet 01/19/14 11/12/16 Unknown Rx 5/325 mg] Cyclobenzaprine [Flexeril] 10 mg PO TID PRN #14 tablet 11/13/16 Unknown Rx Active Meds: Active Medications Acetaminophen (Tylenol) 650 mg PO Q4H PRN PRN Reason: Pain MILD(1-3)/Fever >100.5/JUDD Albuterol (Proventil) 2.5 mg IH Q4HRT PRN PRN Reason: Shortness Of Breath Aspirin (Aspirin) 325 mg PO QDAY [facility] Last Admin: 10/18/17 12:45 Dose: 325 mg Bisacodyl (Dulcolax) 10 mg [place] QDAY PRN PRN Reason: Constipation unrelieved by MOM Carvedilol (Coreg) 3.125 mg PO BID [facility] Last Admin: 10/18/17 12:46 Dose: 3.125 mg Dextrose (D50w (25gm) Syringe) 50 ml IV PRN PRN PRN Reason: Hypoglycemia Enoxaparin Sodium (Lovenox) 40 mg SUB-Q QDAY [facility] Last Admin: 10/18/17 12:35 Dose: 40 mg Furosemide (Lasix) 20 mg PO DAILY [facility] Last Admin: 10/18/17 12:46 Dose: 20 mg Glipizide (Glucotrol Xl) 5 mg PO QDDIAB [facility] Last Admin: 10/18/17 12:50 Dose: 5 mg Insulin Aspart (Novolog) 0 units SUB-Q ACHS [facility] PRN Reason: Protocol Last Admin: 10/18/17 12:46 Dose: Not Given Magnesium Hydroxide (Milk Of Magnesia) 30 ml PO Q4H PRN PRN Reason: Constipation Meclizine HCl (Antivert) 25 mg PO TID PRN PRN Reason: Vertigo Metformin HCl (Glucophage Xr) 1,000 mg PO BIDDIAB [facility] Ondansetron HCl (Zofran) 4 mg IV Q8H PRN PRN Reason: N/V unrelieved by Reglan Oxycodone/Acetaminophen (Percocet 5/325) 1 tab PO Q6H PRN PRN Reason: Pain, Moderate (4-6) Pravastatin Sodium (Pravachol) 40 mg PO QHS [facility] Zolpidem Tartrate (Ambien) 5 mg PO QHS PRN PRN Reason: Insomnia Physical Examination Vital Signs Pulse Resp Pulse Ox 74 11 L 98 10/18/17 02:45 10/18/17 02:45 10/18/17 02:45 General appearance: no acute distress HEENT: Positive: PERRL Cardiac: Positive: Reg Rate and Rhythm Lungs: Positive: Decreased Breath Sounds Neuro: Positive: Grossly Intact Extremities: Present: +1 Edema Results 10/18/17 03:16 10/18/17 03:16 CBC 10/18/17 Range/Units 03:16 WBC 10.4 (4.5-11.0) K/mm3 RBC 3.16 L (3.65-5.03) M/mm3 Hgb 10.2 (10.1-14.3) gm/dl Hct 30.2 L (30.3-42.9) % Plt Count 237 (140-440) K/mm3 Lymph # Vibrating Screed Operator Comprehensive Metabolic Panel 10/18/17 Range/Units 03:16 Sodium 141 (137-145) mmol/L Potassium 3.9 (3.6-5.0) mmol/L Chloride 102.6 (98-107) mmol/L Carbon Dioxide 28 (22-30) mmol/L BUN 16 (7-17) mg/dL Creatinine 1.1 (0.7-1.2) mg/dL Glucose 122 H (65-100) mg/dL Calcium 9.3 (8.4-10.2) mg/dL Assessment and Plan Chest pain, musculoskeletal GERD Hypertension Hx of CAD MPI 11/2016: small sized, reversible basal inferolateral wall defect of mild intensity, EF 62%. No significant change from prior study done in 2012.
[2017-10-18] MEDS: GLUCOPHAGE XR PO SCH (19:43)
[2017-10-18] MEDS ORDERED: AMBIEN PO PRN (22:00)
[2017-10-18] MEDS ORDERED: PRAVACHOL PO SCH (22:00)
[2017-10-19] MEDS: NOVOLOG SUB-Q SCH ×3 (08:28→17:42)
[2017-10-19] MEDS: GLUCOPHAGE XR PO SCH ×2 (08:29→17:43)
[2017-10-19] MEDS: GLUCOTROL XL PO SCH (08:29)
[2017-10-19] MEDS: COREG PO SCH (11:00)
[2017-10-19] MEDS: LASIX PO SCH (11:00)
[2017-10-19] MEDS: LOVENOX SUB-Q SCH (11:00)
[2017-10-19] MEDS: ASPIRIN PO SCH (11:00)
--- NOTE | 2017-10-19 11:01 | Progress Note ---
Assessment and Plan Chest pain, musculoskeletal GERD Hypertension Hx of CAD MPI 11/2016: small sized, reversible basal inferolateral wall defect of mild intensity, EF 62%. No significant change from prior study done in 2013. Echo 01/2016: normal LVEF of 60%. Recommendations: A trial of anti-inflammatory medications for her musculoskeletal pain. Medical management for coronary artery disease. Otherwise, conservative cardiac management. Subjective Date of service: 10/19/17 Interval history: No cardiac events. Objective Vital Signs Temp Pulse Resp BP Pulse Ox 10/19/17 05:31 98.3 F 65 18 113/49 97 10/18/17 23:39 98.5 F 66 18 133/54 98 10/18/17 22:00 69 10/18/17 20:16 97.3 F L 69 18 178/83 99 10/18/17 17:12 69 10/18/17 16:44 68 177/76 99 10/18/17 12:46 78 - Physical Examination General: No Apparent Distress HEENT: Positive: PERRL Cardiac: Positive: Reg Rate and Rhythm Lungs: Positive: Decreased Breath Sounds Neuro: Positive: Grossly Intact Extremities: Present: +1 Edema
[2017-10-19 11:12] VITALS: BP 114/43
--- NOTE | 2017-10-19 15:13 | Progress Note ---
Subjective Date of service: 10/19/17 Objective - Constitutional Vitals: Vital Signs - 12hr 10/19/17 10/19/17 10/19/17 05:31 09:13 11:00 Temperature 98.3 F 98.8 F Pulse Rate 65 66 61 Respiratory 18 12 Rate Blood Pressure 113/49 114/43 114/43 O2 Sat by Pulse 97 97 Oximetry - Labs CBC & Chem 7: 10/18/17 03:16 10/18/17 03:16 Labs: Abnormal lab results 10/18/17 10/18/17 10/18/17 Range/Units 12:21 16:51 21:12 POC Glucose 137 H 213 H 206 H (70-105) 10/19/17 10/19/17 10/19/17 Range/Units 07:29 08:30 11:54 POC Glucose 69 L 125 H 205 H (70-105)
--- NOTE | 2017-10-19 17:24 | Discharge Summary ---
Providers - Providers Date of Admission: 10/18/17 05:22 Date of discharge: 10/19/17 Attending physician: CARINA BURT 10/18/17 10:01 Consult to Cardiology [CONS] Urgent Consulting Provider: AXEL LEOS Reason For Exam: Chest pain/ hx of CT with stent Primary care physician: [facility] [employer] Hospitalization Reason for admission: chest pain Condition: Stable Pertinent studies: CXR - normal Procedures: normal Hospital course: 72-year-old female with a past medical history diabetes, CAD with stent, hypertension, elevated cholesterol, and GERD presents to the hospital with complaints of burning substernal chest pain radiating to her back. Symptoms started yesterday evening are intermittent. No aggravating or alleviating factors reported. Patient denies nausea, vomiting, diarrhea, diaphoresis, or shortness of breath. She has chronic leg edema that is unchanged from her baseline. Patient states she has similar pain when she had an CT requiring a stent in 1998 which was her last cardiac catheterization. However, she reports having a stress test performed this year by [facility]. Patient states she also has a history of reflux and this is different because it is more persistent. Consult was obtained. Patient had a history of carotid disease. Last stress test was done in November 2016 that showed small size reversible inferolateral wall defect. This was similar to define the lesions on her study in 2012. Echocardiogram on january 2016 showed ejection fraction of 60%. Medical management and workup was recommended. Chest pain was thought to be most likely musculoskeletal. Chest pain has resolved. She is therefore being discharged to / with peripheral primary care physician and operations business partner. Patient has diabetes mellitus that was controlled while on admission. Condition at discharge was satisfactory. Disposition: DC-01 TO HOME OR SELFCARE Core Measure Documentation - Palliative Care Palliative Care/ Comfort Measures: Not Applicable - Core Measures Any of the following diagnoses?: none Exam - Constitutional Vitals: Temp Pulse Resp BP Pulse Ox 98.8 F 61 12 114/43 97 10/19/17 09:13 10/19/17 11:00 10/19/17 09:13 10/19/17 11:00 10/19/17 09:13 General appearance: Present: no acute distress, well-nourished - EENT Eyes: Present: PERRL ENT: hearing intact - Neck Neck: Present: supple, normal ROM - Respiratory Respiratory effort: normal Respiratory: bilateral: CTA - Cardiovascular Heart Sounds: Present: S1 & S2. Absent: rub, click - Extremities Extremities: pulses symmetrical, No edema Peripheral Pulses: within normal limits - Abdominal General gastrointestinal: Present: soft, non-tender, non-distended, normal bowel sounds Female genitourinary: Present: normal - Integumentary Integumentary: Present: clear, warm, dry - Musculoskeletal Musculoskeletal: gait normal, strength equal bilaterally - Psychiatric Psychiatric: appropriate mood/affect, intact judgment & insight - Neurologic Neurologic: CNII-XII intact, moves all extremities Plan Activity: advance as tolerated, fall precautions Weight Bearing Status: Weight Bear as Tolerated Diet: low fat, low cholesterol, diabetic Durable Medical Equipment Needed Upon Discharge: Cane Follow up with: PRIMARY CAREMD [Primary Care Provider] - 7 Days AXEL LEOS MD [Staff Physician] - 7 Days Prescriptions: Cetirizine HCl [Allergy Relief] 10 mg PO DAILY #30 tablet Glimepiride [Amaryl] 2 mg PO BID #60 tablet Losartan [Cozaar] 50 mg PO DAILY #30 tablet Metformin HCl [Fortamet ER] 1,000 mg PO BID #60 tab.er.24 oxyCODONE /ACETAMINOPHEN [Percocet 5/325 mg] 1 tab PO Q8H PRN #20 tablet PRN Reason: Pain, Moderate (4-6)
== END 2017-10-19 20:41 | disposition home or self-care (01) | DRG 313 ==
LOC: ED 02:19 → 4A 05:22
PROVIDERS: ADMIT Internal Medicine; ATTEND Family Medicine
DX: R07.89 Other chest pain (principal); E11.9 Type 2 diabetes mellitus without complications; I10 Essential (primary) hypertension; I25.10 Atherosclerotic heart disease of native coronary artery without angina pectoris; K21.9 Gastro-esophageal reflux disease without esophagitis; E78.5 Hyperlipidemia, unspecified; M19.90 Unspecified osteoarthritis, unspecified site; Z95.5 Presence of coronary angioplasty implant and graft; Z87.19 Personal history of other diseases of the digestive system; I25.2 Old myocardial infarction; Z90.49 Acquired absence of other specified parts of digestive tract; Z79.899 Other long term (current) drug therapy; Z79.82 Long term (current) use of aspirin
CPT/HCPCS: 36415; 71010; 80048; 82962; 84484; 85007; 85025; 93005; 93010; 96374; A9270-GY; J1650; J1815